=== PATIENT | male | born 1960 | race African-American/Black ===

== ENCOUNTER 2023-04-29 14:57 | Emergency (ER) | payer MEDICAID ==
[~2023-04-29] VITALS: Ht 190.5 cm; Wt 86.0 kg
[2023-04-29 15:02] VITALS: TEMP 97.6; O2SAT 97
[2023-04-29 15:30] VITALS: BP 148/90; PULSE 81; RESP 16
[2023-04-29] MEDS ORDERED: KETOROLAC 30MG/ML VIAL IM ONE (15:30)
[2023-04-29] MEDS ORDERED: ACET-2708 MT (18:29)
[2023-04-29] MEDS ORDERED: P20 MT (18:29)
== END 2023-04-29 18:52 | disposition home or self-care (01) ==
LOC: ER 14:57
DX: M10.9 Gout, unspecified (principal); M19.072 Primary osteoarthritis, left ankle and foot
CPT/HCPCS: 73610; 73630; 96372; 99284; J1885; Z7610 ×2

== ENCOUNTER 2024-02-06 13:41 | Emergency (ER) | payer MEDICAID, OTHER ==
[~2024-02-06] VITALS: Ht 182.9 cm; Wt 88.5 kg
[~2024-02-06 13:41] MED LIST: ACET-2708 MT; P20 MT
[2024-02-06 13:52] VITALS: O2SAT 97
[2024-02-06 16:52] LABS: BASOPHILS % 0.5 % (0.0-2.0); DIFFERENTIAL COMMENT 0; EOSINOPHILS % 0.6 % (0.0-5.0); HEMATOCRIT. 41.6 % (42.0-52.0); LYMPHOCYTES % 15.9 % (20.0-50.0); MEAN CORPUSCULAR HEMOGLOBIN 34.1 pg (28.0-32.0); MEAN CORPUSCULAR HGB CONC 33.8 g/dL (31.0-37.0); MEAN CORPUSCULAR VOLUME 101.1 fL (80.0-94.0); MEAN PLATELET VOLUME 8.6 fl (7.4-10.4); MONOCYTES % 13.8 % (2.0-8.0); NEUTROPHILS % 69.2 % (40.0-76.0); PLATELET 253 x1000/uL (130-400); RED BLOOD CELL COUNT 4.11 mill/uL (4.7-6.1); RED CELL DISTRIBUTION WIDTH 14.3 % (11.6-14.6); WHITE BLOOD COUNT 9.1 x1000/uL (4.5-11.0)
[2024-02-06 17:17] LABS: ALANINE AMINOTRANSFERASE 16 IU/L (10-49); ALBUMIN 4.3 g/dL (3.2-4.8); ASPARTATE AMINOTRANSFERASE 25 IU/L (<34); BILIRUBIN TOTAL 0.9 mg/dL (0.1-1.0); CALCIUM 8.7 mg/dL (8.7-10.4); CARBON DIOXIDE 26 mEq/L (21-32); CHLORIDE 103 mEq/L (98-107); GLUCOSE 92 mg/dL (70-105); POTASSIUM 3.3 mEq/L (3.5-5.1); PROTEIN TOTAL 8.5 g/dL (6.0-8.3); SODIUM 138 mEq/L (136-145); UREA NITROGEN BLOOD 11 mg/dL (9-23)
[2024-02-06] MEDS: KETOROLAC 30MG/ML VIAL IM ONE (17:30)
[2024-02-06] MEDS ORDERED: CEPH500C2 MT (17:48)
[2024-02-06] MEDS ORDERED: NAPR500T7 MT (17:48)
[2024-02-06 19:05] VITALS: BP 121/86; PULSE 79; RESP 16; TEMP 98.6
== END 2024-02-06 19:12 | disposition home or self-care (01) ==
LOC: ER 14:03
DX: L03.115 Cellulitis of right lower limb (principal); R60.0 Localized edema
CPT/HCPCS: 99285; 93970; 71045; 80053; 83880; 85025; 36415; 73590; 96372; J1885